=== PATIENT | male | born 1980 | race Caucasian/White ===

== ENCOUNTER 2025-01-26 22:07 | Emergency (ER) | payer MEDICARE, SELFPAY ==
[2025-01-26 22:20] VITALS: BP 124/73; PULSE 87; RESP 18; TEMP 36.9; O2SAT 97; BMI 47.5
--- NOTE | 2025-01-26 22:39 | PC.NURSE ---
Numerous superficial animal scratches to anterior and posterior aspects of R arm.
--- NOTE | 2025-01-26 23:49 | ED.WOUNDLAC ---
HPI - Wound/Laceration General Chief Complaint: Wound/Laceration Stated Complaint: deep cat scratch all over RUE Time Seen by Provider: 01/26/25 23:35 Source: patient Mode of arrival: Ambulatory History of Present Illness HPI narrative: Patient is a 45-year-old right-hand dominant man who presents for cat scratches as well as left foot edema. Past medical history significant for MICHELLE (on CPAP), diabetes and hypertension. States that he had a feral cat in his house in a kennel that was let out. The cat ended up scratching his right upper extremity and given how deep there were, he presented to the ER to be evaluated. Counts reports 2-3 months of left foot swelling. He states that he has been evaluated by multiple physicians without any definitive diagnosis. He believe that this was gout previously in took a bunch of guilt medications without any significant improvement. He does not know what makes the edema worse better. He otherwise denies any fevers, chills, nausea, vomiting. No paroxysmal nocturnal orthopnea, denies any chest pain or dyspnea. Related Data Previous Rx's ?Medication ?Instructions ?Recorded azithromycin 250 mg tablet 250 mg PO DAILY 4 days #4 tabs 01/27/25 Allergies Allergy/AdvReac Type Severity Reaction Status Date / Time doxycycline Allergy Anaphylaxis Verified 01/26/25 22:34 Review of Systems Review of Systems Narrative: See HPI. Patient History Social History Smoking Status: Never smoker Smoking Status: Never smoker Exam Initial Vital Signs Initial Vital Signs: Vital Signs Temperature 98.4 F 01/26/25 22:20 Pulse Rate 87 01/26/25 22:20 Respiratory Rate 18 01/26/25 22:20 Blood Pressure 124/73 01/26/25 22:20 Pulse Oximetry 97 01/26/25 22:20 Oxygen Delivery Method Room Air 01/26/25 22:20 Vitals reviewed. Const Other: In no acute distress. Resp Other: Normal rate without increased work of breathing. Cardio Other: Normal rate. Extrem Other: He has multiple superficial linear scratches to his right upper arm and some puncture wounds. 2+ radial pulses bilaterally. He has bilateral lower extremity pitting 2+ edema, L>R. 2+ DP pulses bilaterally. Course Course Course Narrative: 0120: Patient states that he has had several physicians look at his foot without any definitive diagnosis. He denies any trauma however given significant swelling, we will obtain imaging to rule out any occult fractures. 0218: Informed patient of workup findings. Educated patient to utilize compression stockings to decrease edema in bilateral lower extremities, elevating the extremity to the level of the heart or greater when he is laying down. Orders Ordered: ED Orders 01/26/25 23:54 BNP [NT-proBNP (BNP-Adult 18+)] Stat CBC Auto Diff [Complete Blood Count AUTO DIFF] Stat CMP [Comprehensive Metabolic Panel] Stat 01/27/25 01:20 XR foot LT min 3V Stat Discontinued Medications Azithromycin (Azithromycin 250 Mg Tablet) 500 mg PO NOW ONE Stop: 01/26/25 23:44 Last Admin: 01/27/25 00:06 Dose: 500 mg Documented By: AB Vital Signs Vital signs: Vital Signs - 8 hr 01/26/25 22:20 01/27/25 02:55 Temperature 98.4 F Pulse Rate 87 75 Respiratory Rate 18 18 Blood Pressure 124/73 120/81 Pulse Oximetry 97 97 Oxygen Delivery Method Room Air Room Air MDM - Wound/Laceration Lab Data Lab results narrative: CBC without leukocytosis, anemia, thrombocytopenia. No electrolytes disturbance. BNP was normal. 01/26/25 23:54 01/26/25 23:54 Labs: Lab Results 01/26/25 Range/Units 23:54 WBC 10.0 (4.5-11.0) X10^3/uL RBC 5.76 (4.5-5.9) X10^6/uL Hgb 16.8 (13.5-17.5) g/dL Hct 48.3 (41-53) % MCV 83.8 (80-100) fL MCH 29.1 (26-34) PG MCHC 34.7 (30-36) % RDW 14.2 (11.6-14.8) % Plt Count 286 (150-400) X10^3/uL Neut % (Auto) 64.2 (50-75) % Lymph % (Auto) 24.2 L (25-40) % Steele % (Auto) 8.5 (3-14) % Eos % (Auto) 2.0 (2-4) % Baso % (Auto) 1.1 (0-2) % Neut # (Auto) 6400 (4796-1709) /uL Lymph # (Auto) 2400 (7729-7598) /uL Steele # (Auto) 900 (0-900) /uL Eos # (Auto) 200 (0-450) /uL Baso # (Auto) 100 (0-100) /uL Sodium 140 (137-145) mmol/L Potassium 4.1 (3.4-5.1) mmol/L Chloride 102 (98-107) mmol/L Carbon Dioxide 28 (22-32) mmol/L BUN 16 (9-20) mg/dL Creatinine 0.96 (0.66-1.25) mg/dL Estimated GFR > 60 (>60) mL/min BUN/Creatinine Ratio 16.7 (6-22) Glucose 96 (70-99) mg/dL Calcium 9.2 (8.4-10.2) mg/dL Total Bilirubin 0.4 (0.2-1.3) mg/dL AST 26 (17-59) IU/L ALT 18 (<50) IU/L Alkaline Phosphatase 88 (38-126) U/L NT-Pro-B Natriuret Pep < 20 (<125) pg/mL Total Protein 8.9 H (6.3-8.2) g/dL Albumin 4.7 (3.5-5.0) g/dL Globulin 4.2 H (1.7-4.1) g/dL Albumin/Globulin Ratio 1.1 (1.0-2.8) Imaging Data Extremity x-ray #1: My Impression: There is no obvious deformities, fractures, or dislocations. Radiologist's Impression: XR right foot: Bones: No fractures or dislocations. No erosion identified. No suspicious bony lesions. Soft tissues: No tibiotalar joint effusion. Achilles tendon appears normal. No radiopaque foreign body. [facility] Narrative Medical decision making narrative: Patient is a 45-year-old right-hand dominant man who presents for cat scratches as well as left foot edema. Differential diagnosis to include: Cat scratch disease, reactive adenitis, cellulitis, other. For the lower extremities venous insufficiency, congestive heart failure, fractures versus sprain versus strain. In the ER patient was hemodynamically normal, his physical exam revealed multiple superficial abrasions and a few puncture wounds. This was irrigated and thoroughly cleaned out at by patient and he was given his 1st dose of azithromycin in the ER. Three-view plain x-ray of his foot did not reveal any fractures or dislocations. Physical exam findings was consistent with dependent edema. I educated patient on obtaining compression stockings and elevating his lower extremities well and supine position. Patient was discharged with an additional 4 day course of antibiotics. I informed him of signs and symptoms concerning for ascending infection of Bartonella henselae. At discharge patient remained hemodynamically normal and was discharge from the ER. Discharge Plan Departure Patient Disposition: Home Clinical Impression: Laceration, Foot swelling Instructions: DI for Cat Scratch Disease/Fever, Edema Activity Restrictions/Additional Instructions: No activity restrictions. Prescriptions: New azithromycin 250 mg tablet 250 mg PO DAILY 4 Days Qty: 4 0RF Rx Instructions: Start 10/5 and take antibiotics daily until all pills are gone. Referrals: Ayesha Maguire ARNP [Primary Care Provider, Family Practice] Stand Alone Forms: Patient Portal/API Medical History Social History Smoking Status: Never smoker
[2025-01-27] MEDS: AZITHROMYCIN 250 MG TABLET 500 MG PO (00:06)
[2025-01-27 00:08] LABS: Add Manual Diff / Slide Review NO; Hematocrit 48.3 % (41-53); Hemoglobin 16.8 g/dL (13.5-17.5); Lymphocytes Absolute Auto 2400 /uL (1100-4500); Mean Corpuscular HGB Conc 34.7 % (30-36); Mean Corpuscular Hemoglobin 29.1 PG (26-34); Mean Corpuscular Volume 83.8 fL (80-100); Platelet Count 286 X10^3/uL (150-400)
[2025-01-27 00:22] LABS: Alanine Aminotransferase 18 IU/L (<50); Albumin 4.7 g/dL (3.5-5.0); Albumin Globulin Ratio 1.1 (1.0-2.8); Alkaline Phosphatase 88 U/L (38-126); Blood Urea Nitrogen 16 mg/dL (9-20); Calcium 9.2 mg/dL (8.4-10.2); Carbon Dioxide 28 mmol/L (22-32); Chloride 102 mmol/L (98-107); Estimated Glomerular Filt Rate > 60 mL/min (>60); Globulin 4.2 g/dL (1.7-4.1); Glucose 96 mg/dL (70-99); HEMOLYSIS < 15 (0-50); Potassium 4.1 mmol/L (3.4-5.1); Sodium 140 mmol/L (137-145); Total Protein 8.9 g/dL (6.3-8.2)
[2025-01-27 00:31] LABS: NT-proBNP (BNP-Adult 18+) < 20 pg/mL (<125)
--- NOTE | 2025-01-27 01:20 | DI.RAD.S_ITS ---
PROCEDURE: XR FOOT LT MIN 3V INDICATIONS: Left foot swelling TECHNIQUE: 3 views of the foot were acquired. COMPARISON: None. FINDINGS: Bones: No fractures or dislocations. No erosion identified. No suspicious bony lesions. Soft tissues: No tibiotalar joint effusion. Achilles tendon appears normal. No radiopaque foreign body. IMPRESSION: No acute bony abnormality. Dictated by: Manish Stuart M.D. on 01/27/2025 at 2:18 Approved by: Manish Stuart M.D. on 01/27/2025 at 2:19
--- NOTE | 2025-01-27 02:51 | PC.NURSE ---
Instructions on site care given. Patient given 1 set of wound dressing for tomorrow, and a bottle of hibiclens to wash multiple days in a row.
[2025-01-27 02:55] VITALS: BP 120/81; PULSE 75; RESP 18; O2SAT 97
== END 2025-01-27 02:56 | disposition home or self-care (01) ==
PROVIDERS: Emergency Provider Student in an Organized Health Care Education/Training Program; Family Provider Internal Medicine; PCP Nurse Practitioner Family
DX: S91.312A Laceration without foreign body, left foot, initial encounter (principal); R60.0 Localized edema; W55.03XA Scratched by cat, initial encounter
CPT/HCPCS: 73630; 80053; 83880; 85025; 99283; 99284